=== PATIENT | male | born 1975 | race Caucasian/White ===

== ENCOUNTER 2017-05-30 14:30 | Inpatient (IN) | payer SELFPAY ==
[~2017-05-30] VITALS: Ht 167.6 cm; Wt 77.1 kg
[2017-05-30] MEDS ORDERED: ONDANSETRON HCL 4MG/2ML VIAL IV STA (16:32)
[2017-05-30] MEDS ORDERED: MORPHINE SULFATE 4 MG/ML CPJ (NOT FOR IM USE) IV STA (16:32)
[2017-05-30] MEDS ORDERED: SODIUM CHLORIDE 0.9% 1,000 ML IV ONE (16:32)
[2017-05-30] MEDS ORDERED: PANTOPRAZOLE SODIUM 40 MG/VIAL IV STA (16:32)
[2017-05-30 17:06] LABS: HEMATOCRIT. 40.5 % (42.0-52.0); HEMOGLOBIN. 13.4 g/dL (14.0-18.0); MEAN PLATELET VOLUME 9.8 fl (7.4-10.4); PLATELET 212 x1000/uL (130-400); RED BLOOD CELL COUNT 4.94 mill/uL (4.7-6.1); RED CELL DISTRIBUTION WIDTH 18.9 % (11.6-14.6)
[2017-05-30 17:09] LABS: CHLORIDE 97 mEq/L (98-107)
[2017-05-30 17:11] LABS: INR 1.1; PARTIAL THROMBOPLASTIN TIME 26.1 sec (24.0-34.0); PROTHROMBIN TIME 11.1 sec
[2017-05-30 17:18] LABS: CARBON DIOXIDE 17 mEq/L (21-32); ETHANOL BLOOD < 10 mg/dL
[2017-05-30 17:30] LABS: CLARITY URINE CLOUDY (CLEAR); COLOR URINE ORANGE (YELLOW); GLUCOSE URINE NEGATIVE (NEGATIVE); KETONES URINE 2+ (NEGATIVE); LEUKOCYTE ESTERASE URINE 1+ (NEGATIVE); NITRITE URINE POSITIVE (NEGATIVE); OCCULT BLOOD URINE NEGATIVE (NEGATIVE); PH URINE 5.5 (4.5-8.0); PROTEIN URINE 2+ (NEGATIVE); SPECIFIC GRAVITY URINE 1.032 (1.005-1.030)
[2017-05-30 17:36] LABS: PLATELET ESTIMATE NORMAL
[2017-05-30 17:41] LABS: *AMPHETAMINES SCREEN URINE NEGATIVE (NEGATIVE); *BARBITURATES SCREEN URINE NEGATIVE (NEGATIVE); *BENZODIAZEPINES SCREEN URINE NEGATIVE (NEGATIVE); *COCAINE SCREEN URINE NEGATIVE (NEGATIVE); CANNABINOID URINE SCREEN PRESUMTIVE POSITIVE (NEGATIVE); METHADONE URINE SCREEN NEGATIVE (NEGATIVE); OPIATES URINE SCREEN PRESUMTIVE POSITIVE (NEGATIVE); PHENCYCLIDINE URINE SCREEN NEGATIVE (NEGATIVE)
[2017-05-30] MEDS ORDERED: LORAZEPAM 2MG/ML CPJ IV ONE (21:00)
[2017-05-30] MEDS ORDERED: NA PHOS,M-B/NA PHOS,DI-BA ENEMA 118ML PR PRN (22:30)
[2017-05-30] MEDS ORDERED: ACETAMINOPHEN 325MG TABLET PO PRN (22:30)
[2017-05-30] MEDS ORDERED: HYDROMORPHONE HCL/PF 2MG/ML CPJ IV PRN (22:30)
[2017-05-30] MEDS ORDERED: CLONIDINE 0.1MG TABLET PO PRN (22:30)
[2017-05-30] MEDS ORDERED: MAGNESIUM/ALUMINUM HYDROXIDE/SIMETHICONE 30ML UDC PO PRN (22:30)
[2017-05-30] MEDS ORDERED: ONDANSETRON HCL 4MG/2ML VIAL IV PRN (22:30)
[2017-05-30] MEDS ORDERED: DIPHENHYDRAMINE 50MG/ML VIAL IV PRN (22:30)
[2017-05-30] MEDS ORDERED: DOCUSATE SODIUM 100MG CAPSULE PO PRN (22:30)
[2017-05-30] MEDS ORDERED: GUAIFENESIN 200MG/10ML SUGAR FREE UDC PO PRN (22:30)
[2017-05-30] MEDS ORDERED: LORAZEPAM 2MG/ML CPJ IV PRN (22:30)
[2017-05-30] MEDS ORDERED: IPRATROPIUM/ALBUTEROL 0.5-3(2.5)MG/3ML NEB INH PRN (22:30)
[2017-05-30 22:47] VITALS: BP 123/79
[2017-05-30 23:11] VITALS: BP 123/79
[2017-05-30 23:22] LABS: CARBON DIOXIDE 26 mEq/L (21-32); CHLORIDE 97 mEq/L (98-107)
[2017-05-31] VITALS (7 sets, daily range): BP systolic 98–111; BP diastolic 67–87
[2017-05-31] MEDS: SODIUM CHLORIDE 0.45% 1,000 ML IV SCH ×3 (00:52→20:47)
[2017-05-31 07:34] LABS: HEMATOCRIT. 36.7 % (42.0-52.0); MEAN CORPUSCULAR HEMOGLOBIN 27.2 pg (28.0-32.0); MEAN CORPUSCULAR VOLUME 82.8 fL (80.0-94.0); MEAN PLATELET VOLUME 9.8 fl (7.4-10.4); PLATELET 167 x1000/uL (130-400); RED BLOOD CELL COUNT 4.42 mill/uL (4.7-6.1); RED CELL DISTRIBUTION WIDTH 18.6 % (11.6-14.6)
[2017-05-31] MEDS ORDERED: LORAZEPAM 2MG/ML CPJ IV PRN (07:45)
[2017-05-31 08:21] LABS: CARBON DIOXIDE 26 mEq/L (21-32); CHLORIDE 97 mEq/L (98-107); HDL CHOLESTEROL 118 mg/dL (40-59); LDL CHOLESTEROL 73 mg/dL (5-100)
[2017-05-31 08:23] LABS: TROPONIN I < 0.02 ng/mL (0.00-0.04)
[2017-05-31] MEDS: THIAMINE HCL 100MG TABLET PO SCH (09:25)
[2017-05-31] MEDS ORDERED: POTASSIUM CHLORIDE 20MEQ TABLET SR PO SCH (12:30)
[2017-05-31] MEDS: PANTOPRAZOLE SODIUM 40 MG/VIAL IV SCH (13:21)
[2017-05-31 16:55] LABS: PLATELET ESTIMATE NORMAL
[2017-05-31] MEDS: HYDROCODONE/APAP 7.5/325MG 1 TAB TABLET PO PRN (22:40)
[2017-06-01] VITALS (7 sets, daily range): BP systolic 96–130; BP diastolic 68–88
[2017-06-01 06:45] LABS: CARBON DIOXIDE 34 mEq/L (21-32); CHLORIDE 100 mEq/L (98-107)
[2017-06-01 06:54] LABS: BASOPHILS % 1.2 % (0.0-2.0); HEMOGLOBIN. 11.8 g/dL (14.0-18.0); LYMPHOCYTES % 35.8 % (20.0-50.0); MEAN CORPUSCULAR HEMOGLOBIN 27.5 pg (28.0-32.0); MEAN CORPUSCULAR VOLUME 84.1 fL (80.0-94.0); MEAN PLATELET VOLUME 9.8 fl (7.4-10.4); MONOCYTES % 13.4 % (2.0-8.0); NEUTROPHILS % 47.6 % (40.0-76.0); PLATELET 149 x1000/uL (130-400); RED BLOOD CELL COUNT 4.28 mill/uL (4.7-6.1); RED CELL DISTRIBUTION WIDTH 18.5 % (11.6-14.6)
[2017-06-01] MEDS ORDERED: POTASSIUM CHLORIDE 20MEQ TABLET SR PO NR (07:45)
[2017-06-01] MEDS: HYDROCODONE/APAP 7.5/325MG 1 TAB TABLET PO PRN (09:49)
[2017-06-01] MEDS: PANTOPRAZOLE SODIUM 40 MG/VIAL IV SCH (09:49)
[2017-06-01] MEDS: THIAMINE HCL 100MG TABLET PO SCH (09:49)
[2017-06-01] MEDS: SODIUM CHLORIDE 0.45% 1,000 ML IV SCH (09:51)
[2017-06-02] VITALS: BP 101/63
[2017-06-02] MEDS: SODIUM CHLORIDE 0.45% 1,000 ML IV SCH ×2 (03:19→18:17)
[2017-06-02 04:00] VITALS: BP 106/67
[2017-06-02 08:00] VITALS: BP 107/71
[2017-06-02] MEDS: THIAMINE HCL 100MG TABLET PO SCH (09:14)
[2017-06-02] MEDS: FAMOTIDINE 20MG TABLET PO SCH ×2 (09:14→18:16)
[2017-06-02 12:00] VITALS: BP 112/95
[2017-06-02 16:00] VITALS: BP 105/79
[2017-06-02] MEDS: HYDROCODONE/APAP 7.5/325MG 1 TAB TABLET PO PRN (18:18)
[2017-06-02 20:00] VITALS: BP 115/68
[2017-06-03] VITALS: BP 101/62
[2017-06-03 04:00] VITALS: BP 98/65
[2017-06-03 08:00] VITALS: BP 120/82
[2017-06-03] MEDS: THIAMINE HCL 100MG TABLET PO SCH (08:22)
[2017-06-03] MEDS: FAMOTIDINE 20MG TABLET PO SCH (08:22)
[2017-06-03 12:00] VITALS: BP 116/85
[2017-06-03 14:15] VITALS: BP 116/85
== END 2017-06-03 16:30 | disposition home or self-care (01) | DRG 282 ==
LOC: ER 14:47 → 8WST 21:32 → ENRESERV 21:36 → CANRESERV 21:36 → ENRESERV 21:38
PROVIDERS: ADMIT Internal Medicine; ATTEND Internal Medicine
DX: K85.20 Alcohol induced acute pancreatitis without necrosis or infection (principal); E46 Unspecified protein-calorie malnutrition; F10.239 Alcohol dependence with withdrawal, unspecified; D64.9 Anemia, unspecified; E86.0 Dehydration; F17.210 Nicotine dependence, cigarettes, uncomplicated; I10 Essential (primary) hypertension; F11.90 Opioid use, unspecified, uncomplicated; K21.9 Gastro-esophageal reflux disease without esophagitis; K29.70 Gastritis, unspecified, without bleeding; Z96.659 Presence of unspecified artificial knee joint; Z82.49 Family history of ischemic heart disease and other diseases of the circulatory system; Z68.27 Body mass index [BMI] 27.0-27.9, adult
CPT/HCPCS: 36415; 71010; 80048; 80053; 80061; 80305; 81001; 83690; 84484; 85025; 85610; 85730; 86850; 86900; 96361; 96374; 96375; 97162; 97535; 99285; C9113; G0482; J2060; J2270; J2405; J7030

== ENCOUNTER 2019-06-14 14:22 | Emergency (ER) | payer MEDICAID, OTHER ==
[~2019-06-14] VITALS: Ht 172.7 cm; Wt 70.0 kg
[2019-06-14 15:31] VITALS: BP 120/81
[2019-06-14] MEDS: KETOROLAC 30MG/ML VIAL IM ONE (15:31)
== END 2019-06-14 16:18 | disposition left against medical advice (07) ==
LOC: ER 14:22
DX: S80.11XA Contusion of right lower leg, initial encounter (principal); W51.XXXA Accidental striking against or bumped into by another person, initial encounter; Y93.89 Activity, other specified; Y92.89 Other specified places as the place of occurrence of the external cause; Y99.8 Other external cause status
CPT/HCPCS: 96372; 99283; J1885

== ENCOUNTER 2019-06-14 20:21 | Emergency (ER) | payer OTHER ==
[~2019-06-14] VITALS: Ht 167.6 cm; Wt 65.0 kg
[2019-06-15] MEDS ORDERED: ACETAMINOPHEN 325MG TABLET PO ONE (00:30)
[2019-06-15] MEDS ORDERED: KETOROLAC 60MG/2ML VIAL IM ONE (00:30)
[2019-06-15 01:31] VITALS: BP 129/80
== END 2019-06-15 02:00 | disposition home or self-care (01) ==
LOC: ER 23:37
DX: M79.604 Pain in right leg (principal); G89.28 Other chronic postprocedural pain; Z89.511 Acquired absence of right leg below knee; M79.605 Pain in left leg; F12.90 Cannabis use, unspecified, uncomplicated
CPT/HCPCS: 96372; 99283; J1885

== ENCOUNTER 2019-06-26 10:23 | Inpatient (IN) | payer OTHER ==
[~2019-06-26] VITALS: Ht 167.6 cm; Wt 72.6 kg
[2019-06-26] MEDS ORDERED: SODIUM CHLORIDE 0.9% 1,000 ML IV ONE (11:07)
[2019-06-26] MEDS ORDERED: PIPERACILLIN/TAZ 3.375G PREMIX 50 ML IV ONE (11:15)
[2019-06-26] MEDS ORDERED: VANCOMYCIN 1 G PREMIX 200 ML IV ONE (11:15)
[2019-06-26 12:05] LABS: BASOPHILS % 1.1 % (0.0-2.0); EOSINOPHILS % 3.4 % (0.0-5.0); HEMATOCRIT. 34.1 % (42.0-52.0); HEMOGLOBIN. 11.2 g/dL (14.0-18.0); MEAN CORPUSCULAR HEMOGLOBIN 25.9 pg (28.0-32.0); MEAN PLATELET VOLUME 8.2 fl (7.4-10.4); MONOCYTES % 14.2 % (2.0-8.0); NEUTROPHILS % 61.3 % (40.0-76.0); PLATELET 214 x1000/uL (130-400); RED BLOOD CELL COUNT 4.32 mill/uL (4.7-6.1); RED CELL DISTRIBUTION WIDTH 15.9 % (11.6-14.6)
[2019-06-26 12:06] LABS: CHLORIDE 97 mEq/L (98-107)
[2019-06-26] MEDS ORDERED: SODIUM CHLORIDE 0.9% 1000ML BAG (SEPSIS BOLUS) IV ONE (12:30)
[2019-06-26] MEDS ORDERED: ONDANSETRON HCL 4MG/2ML INJ IV PRN (13:45)
[2019-06-26] MEDS ORDERED: ACETAMINOPHEN 325MG TABLET PO PRN (13:45)
[2019-06-26 13:46] LABS: CLARITY URINE CLEAR (CLEAR); COLOR URINE YELLOW (YELLOW); KETONES URINE NEGATIVE (NEGATIVE); LEUKOCYTE ESTERASE URINE NEGATIVE (NEGATIVE); NITRITE URINE NEGATIVE (NEGATIVE); OCCULT BLOOD URINE 2+ (NEGATIVE); PROTEIN URINE NEGATIVE (NEGATIVE); SPECIFIC GRAVITY URINE 1.005 (1.005-1.030); UROBILINOGEN URINE 0.2 E.U./dL (0.2-1.0)
[2019-06-26] MEDS ORDERED: HYDROCODONE/ACETAMINOPHEN 5/325MG TABLET PO ONE (14:00)
[2019-06-26 14:50] VITALS: BP 125/78
[2019-06-26 16:00] VITALS: BP 125/78
[2019-06-26] MEDS ORDERED: POTASSIUM CHLORIDE 20MEQ TABLET SR PO NR (16:30)
[2019-06-26 16:34] LABS: *AMPHETAMINES SCREEN URINE PRESUMTIVE POSITIVE (NEGATIVE); *BARBITURATES SCREEN URINE NEGATIVE (NEGATIVE)
[2019-06-26 16:35] LABS: *BENZODIAZEPINES SCREEN URINE NEGATIVE (NEGATIVE); *COCAINE SCREEN URINE NEGATIVE (NEGATIVE); CANNABINOID URINE SCREEN NEGATIVE (NEGATIVE); OPIATES URINE SCREEN NEGATIVE (NEGATIVE); PHENCYCLIDINE URINE SCREEN NEGATIVE (NEGATIVE)
[2019-06-26 16:43] LABS: METHADONE URINE SCREEN NEGATIVE (NEGATIVE)
[2019-06-26] MEDS: MORPHINE SULFATE 2 MG/ML CPJ (NOT FOR IM USE) IV PRN (17:11)
[2019-06-26] MEDS ORDERED: LORAZEPAM 2MG/ML CPJ IV PRN (18:45)
[2019-06-26] MEDS: PIPERACILLIN/TAZOBACTAM 3.375 G in DEXT 5% WATER 100 ML IV SCH (18:49)
[2019-06-26 20:00] VITALS: BP 115/70
[2019-06-26] MEDS ORDERED: ENOXAPARIN 40MG/0.4ML SYR SUBCUT SCH (21:00)
[2019-06-26] MEDS: VANCOMYCIN 1250MG in DEXTROSE 5% WATER 250ML IV SCH (22:43)
[2019-06-26] MEDS: CHLORDIAZEPOXIDE 25MG CAPSULE PO SCH (22:43)
[2019-06-27] VITALS: BP 100/65
[2019-06-27] MEDS: PIPERACILLIN/TAZOBACTAM 3.375 G in DEXT 5% WATER 100 ML IV SCH ×2 (01:04→05:55)
[2019-06-27] MEDS: VANCOMYCIN 1250MG in DEXTROSE 5% WATER 250ML IV SCH (03:02)
[2019-06-27] MEDS: MORPHINE SULFATE 2 MG/ML CPJ (NOT FOR IM USE) IV PRN (03:12)
[2019-06-27 04:00] VITALS: BP 132/83
[2019-06-27] MEDS: CHLORDIAZEPOXIDE 25MG CAPSULE PO SCH ×2 (05:58→16:33)
[2019-06-27 07:06] LABS: BASOPHILS % 0.6 % (0.0-2.0); HEMATOCRIT. 30.3 % (42.0-52.0); LYMPHOCYTES % 12.8 % (20.0-50.0); MEAN CORPUSCULAR HEMOGLOBIN 25.9 pg (28.0-32.0); MEAN CORPUSCULAR VOLUME 78.6 fL (80.0-94.0); MEAN PLATELET VOLUME 8.8 fl (7.4-10.4); MONOCYTES % 12.4 % (2.0-8.0); NEUTROPHILS % 72.2 % (40.0-76.0); PLATELET 199 x1000/uL (130-400); RED BLOOD CELL COUNT 3.86 mill/uL (4.7-6.1)
[2019-06-27 07:08] LABS: CHLORIDE 102 mEq/L (98-107)
[2019-06-27] MEDS ORDERED: LIDOCAINE HCL 4% CREAM 76GM TUBE TP PRN (07:30)
[2019-06-27 08:00] VITALS: BP 109/68
[2019-06-27] MEDS ORDERED: MULTIVITAMINS,THER W-MINERALS TABLET PO SCH (09:00)
[2019-06-27] MEDS ORDERED: FOLIC ACID 1MG TABLET PO SCH (09:00)
[2019-06-27] MEDS ORDERED: THIAMINE HCL 100MG TABLET PO SCH (09:00)
[2019-06-27] MEDS ORDERED: POTASSIUM CHLORIDE 20MEQ TABLET SR PO NR (10:30)
[2019-06-27] MEDS ORDERED: HYDROCODONE/ACETAMINOPHEN 10/325MG TABLET PO PRN (11:00)
[2019-06-27] MEDS ORDERED: VANCOMYCIN 1 G PREMIX 200 ML IV SCH (11:00)
[2019-06-27 12:00] VITALS: BP 109/68
[2019-06-27 16:00] VITALS: BP 103/61
[2019-06-27] MEDS ORDERED: PIPERACILLIN/TAZOBACTAM 3.375 G in DEXT 5% WATER 100 ML IV SCH (18:00)
[2019-06-27 21:32] VITALS: BP 95/65
== END 2019-06-27 21:06 | disposition short-term general hospital (02) | DRG 721 ==
LOC: ER 10:23 → 6EST 12:39 → EDBEDREQ 12:41 → ENRESERV 14:23
PROVIDERS: ADMIT Internal Medicine; ATTEND Internal Medicine
PROC: 0JBR0ZZ Excision of Left Foot Subcutaneous Tissue and Fascia, Open Approach (ICD-10-PCS; principal; 2019-06-27)
DX: T85.79XA Infection and inflammatory reaction due to other internal prosthetic devices, implants and grafts, initial encounter (principal); A41.9 Sepsis, unspecified organism; E87.8 Other disorders of electrolyte and fluid balance, not elsewhere classified; E87.1 Hypo-osmolality and hyponatremia; Z89.611 Acquired absence of right leg above knee; D64.9 Anemia, unspecified; S82.839A Other fracture of upper and lower end of unspecified fibula, initial encounter for closed fracture; G62.1 Alcoholic polyneuropathy; S91.012A Laceration without foreign body, left ankle, initial encounter; E87.6 Hypokalemia; F10.10 Alcohol abuse, uncomplicated; F12.90 Cannabis use, unspecified, uncomplicated; Z59.0 Homelessness; Z63.8 Other specified problems related to primary support group; Z99.3 Dependence on wheelchair; Z71.41 Alcohol abuse counseling and surveillance of alcoholic; X58.XXXA Exposure to other specified factors, initial encounter; Y93.89 Activity, other specified; Y92.89 Other specified places as the place of occurrence of the external cause; Y99.8 Other external cause status; F15.10 Other stimulant abuse, uncomplicated; Y83.2 Surgical operation with anastomosis, bypass or graft as the cause of abnormal reaction of the patient, or of later complication, without mention of misadventure at the time of the procedure; Y92.9 Unspecified place or not applicable
CPT/HCPCS: 36415; 71045; 73590; 80048; 80305; 81003; 83605; 84145; 84484; 86850; 86900; 87070; 87075; 93005; 96365; 96368; 99291; J1650; J2060; J2270; J2405; J2543; J3370; J7030; J7060

== ENCOUNTER 2019-07-23 19:00 | Emergency (ER) | payer OTHER ==
[~2019-07-23] VITALS: Ht 162.6 cm; Wt 58.0 kg
[2019-07-23] MEDS ORDERED: KETOROLAC 60MG/2ML VIAL IM ONE (19:45)
[2019-07-23] MEDS ORDERED: SULFAMETHOXAZOLE/TRIMETHOPRIM 800/160MG TABLET PO ONE (19:45)
[2019-07-23] MEDS ORDERED: CEPHALEXIN 250MG CAPSULE PO ONE (19:45)
[2019-07-23] MEDS ORDERED: ACETAMINOPHEN 325MG TABLET PO ONE (19:45)
[2019-07-24] MEDS ORDERED: LORAZEPAM 1MG TABLET PO ONE (05:30)
[2019-07-24] MEDS ORDERED: KETOROLAC 15MG/ML VIAL IM ONE (05:30)
[2019-07-24] MEDS ORDERED: ACETAMINOPHEN 325MG TABLET PO ONE ×2 (11:15→17:30)
[2019-07-24] MEDS ORDERED: KETOROLAC 30MG/ML VIAL IM STA (19:01)
[2019-07-25 07:10] VITALS: BP 128/73
== END 2019-07-25 07:48 | disposition home or self-care (01) ==
LOC: ER 19:00
DX: L03.116 Cellulitis of left lower limb (principal); M79.605 Pain in left leg; F12.10 Cannabis abuse, uncomplicated; F10.10 Alcohol abuse, uncomplicated; Z89.611 Acquired absence of right leg above knee; Z59.0 Homelessness; Y90.9 Presence of alcohol in blood, level not specified
CPT/HCPCS: 96372; 99284; J1885; Z7610

== ENCOUNTER 2019-07-25 21:10 | Emergency (ER) | payer OTHER ==
[~2019-07-25] VITALS: Ht 165.1 cm; Wt 59.0 kg
[2019-07-26] MEDS ORDERED: SODIUM CHLORIDE 0.9% 1,000 ML IV ONE (01:18)
[2019-07-26] MEDS ORDERED: ONDANSETRON HCL 4MG/2ML INJ IV STA (01:18)
[2019-07-26] MEDS ORDERED: KETOROLAC 30MG/ML VIAL IV STA (01:18)
[2019-07-26] MEDS ORDERED: FAMOTIDINE 20MG/2ML VIAL IV ONE (01:30)
[2019-07-26 02:19] LABS: BASOPHILS % 1.2 % (0.0-2.0); EOSINOPHILS % 9.2 % (0.0-5.0); HEMATOCRIT. 35.5 % (42.0-52.0); HEMOGLOBIN. 11.5 g/dL (14.0-18.0); LYMPHOCYTES % 23.2 % (20.0-50.0); MEAN CORPUSCULAR HEMOGLOBIN 25.5 pg (28.0-32.0); MEAN CORPUSCULAR VOLUME 78.8 fL (80.0-94.0); MONOCYTES % 7.4 % (2.0-8.0); PLATELET 316 x1000/uL (130-400); RED BLOOD CELL COUNT 4.51 mill/uL (4.7-6.1); RED CELL DISTRIBUTION WIDTH 17.7 % (11.6-14.6)
[2019-07-26 02:43] LABS: CHLORIDE 107 mEq/L (98-107)
[2019-07-26 02:50] LABS: ETHANOL BLOOD 227 mg/dL
[2019-07-26 04:46] LABS: CLARITY URINE CLEAR (CLEAR); COLOR URINE YELLOW (YELLOW); KETONES URINE NEGATIVE (NEGATIVE); LEUKOCYTE ESTERASE URINE 3+ (NEGATIVE); NITRITE URINE NEGATIVE (NEGATIVE); OCCULT BLOOD URINE 1+ (NEGATIVE); PROTEIN URINE NEGATIVE (NEGATIVE); UROBILINOGEN URINE 0.2 E.U./dL (0.2-1.0)
[2019-07-26 05:14] LABS: *BARBITURATES SCREEN URINE NEGATIVE (NEGATIVE); *BENZODIAZEPINES SCREEN URINE NEGATIVE (NEGATIVE); METHADONE URINE SCREEN NEGATIVE (NEGATIVE); OPIATES URINE SCREEN NEGATIVE (NEGATIVE)
[2019-07-26 05:15] LABS: CANNABINOID URINE SCREEN NEGATIVE (NEGATIVE); PHENCYCLIDINE URINE SCREEN NEGATIVE (NEGATIVE)
[2019-07-26 05:22] LABS: *AMPHETAMINES SCREEN URINE NEGATIVE (NEGATIVE)
[2019-07-26 05:23] LABS: *COCAINE SCREEN URINE NEGATIVE (NEGATIVE)
[2019-07-26 06:30] VITALS: BP 109/61
== END 2019-07-26 06:30 | disposition home or self-care (01) ==
LOC: ER 23:57
DX: R10.13 Epigastric pain (principal); F10.129 Alcohol abuse with intoxication, unspecified; Y90.7 Blood alcohol level of 200-239 mg/100 ml; F12.10 Cannabis abuse, uncomplicated
CPT/HCPCS: 36415; 80053; 80305; 80320; 81003; 83690; 85025; 93005; 96361; 96374; 96375; 99284; J1885; J2405; J3490; J7030; Z7610; G0480

== ENCOUNTER 2019-09-17 19:49 | Emergency (ER) | payer OTHER ==
[~2019-09-17] VITALS: Ht 167.6 cm; Wt 73.0 kg
[2019-09-17] MEDS ORDERED: IBUPROFEN 600MG TABLET PO ONE (23:15)
[2019-09-17 23:19] LABS: EOSINOPHILS % 5.5 % (0.0-5.0); HEMATOCRIT. 38.4 % (42.0-52.0); HEMOGLOBIN. 12.1 g/dL (14.0-18.0); LYMPHOCYTES % 19.3 % (20.0-50.0); MEAN CORPUSCULAR HEMOGLOBIN 26.4 pg (28.0-32.0); MEAN CORPUSCULAR VOLUME 83.6 fL (80.0-94.0); MONOCYTES % 10.7 % (2.0-8.0); NEUTROPHILS % 63.5 % (40.0-76.0); PLATELET 338 x1000/uL (130-400); RED BLOOD CELL COUNT 4.59 mill/uL (4.7-6.1); RED CELL DISTRIBUTION WIDTH 19.3 % (11.6-14.6)
[2019-09-17 23:25] LABS: CHLORIDE 109 mEq/L (98-107)
[2019-09-18 05:50] VITALS: BP 102/60
== END 2019-09-18 06:12 | disposition home or self-care (01) ==
LOC: ER 19:49
DX: G89.29 Other chronic pain (principal); M25.572 Pain in left ankle and joints of left foot; M79.662 Pain in left lower leg; D64.9 Anemia, unspecified; R03.0 Elevated blood-pressure reading, without diagnosis of hypertension; F12.90 Cannabis use, unspecified, uncomplicated; Z89.511 Acquired absence of right leg below knee
CPT/HCPCS: 36415; 73590; 73600; 80048; 99284

== ENCOUNTER 2019-12-18 15:49 | Emergency (ER) | payer OTHER ==
[~2019-12-18] VITALS: Ht 165.1 cm; Wt 68.0 kg
[2019-12-18] MEDS ORDERED: FAMOTIDINE 20MG/2ML VIAL IV STA (16:42)
[2019-12-18] MEDS ORDERED: VISCOUS LIDOCAINE 2% 15 ML UDC PO STA (16:42)
[2019-12-18] MEDS ORDERED: ONDANSETRON HCL 4MG/2ML INJ IV STA (16:42)
[2019-12-18] MEDS ORDERED: SODIUM CHLORIDE 0.9% 1,000 ML IV ONE (16:42)
[2019-12-18] MEDS ORDERED: MAGNESIUM/ALUMINUM HYDROXIDE/SIMETHICONE 30ML UDC PO STA (16:42)
[2019-12-18 18:11] LABS: BASOPHILS % 1.5 % (0.0-2.0); EOSINOPHILS % 3.7 % (0.0-5.0); HEMATOCRIT. 36.5 % (42.0-52.0); HEMOGLOBIN. 11.3 g/dL (14.0-18.0); LYMPHOCYTES % 24.2 % (20.0-50.0); MEAN CORPUSCULAR HEMOGLOBIN 24.5 pg (28.0-32.0); MEAN CORPUSCULAR VOLUME 79.3 fL (80.0-94.0); MEAN PLATELET VOLUME 7.8 fl (7.4-10.4); MONOCYTES % 8.3 % (2.0-8.0); NEUTROPHILS % 62.3 % (40.0-76.0); PLATELET 296 x1000/uL (130-400); RED CELL DISTRIBUTION WIDTH 18.6 % (11.6-14.6)
[2019-12-18 18:19] LABS: CHLORIDE 106 mEq/L (98-107)
[2019-12-18 18:39] LABS: ETHANOL BLOOD 304 mg/dL
[2019-12-18 19:52] LABS: CLARITY URINE CLEAR (CLEAR); COLOR URINE YELLOW (YELLOW); KETONES URINE NEGATIVE (NEGATIVE); LEUKOCYTE ESTERASE URINE NEGATIVE (NEGATIVE); NITRITE URINE NEGATIVE (NEGATIVE); OCCULT BLOOD URINE TRACE (NEGATIVE); PROTEIN URINE NEGATIVE (NEGATIVE); SPECIFIC GRAVITY URINE 1.007 (1.005-1.030); UROBILINOGEN URINE 0.2 E.U./dL (0.2-1.0)
[2019-12-18 20:03] LABS: *AMPHETAMINES SCREEN URINE NEGATIVE (NEGATIVE); *BARBITURATES SCREEN URINE NEGATIVE (NEGATIVE); *BENZODIAZEPINES SCREEN URINE PRESUMTIVE POSITIVE (NEGATIVE); *COCAINE SCREEN URINE NEGATIVE (NEGATIVE); METHADONE URINE SCREEN NEGATIVE (NEGATIVE)
[2019-12-18 20:04] LABS: CANNABINOID URINE SCREEN NEGATIVE (NEGATIVE); OPIATES URINE SCREEN NEGATIVE (NEGATIVE); PHENCYCLIDINE URINE SCREEN NEGATIVE (NEGATIVE)
[2019-12-19] MEDS ORDERED: ONDANSETRON 4MG ODT PO ONE (07:30)
[2019-12-19 10:20] VITALS: BP 112/68
== END 2019-12-19 09:44 | disposition home or self-care (01) ==
LOC: ER 15:49
DX: L03.116 Cellulitis of left lower limb (principal); F10.229 Alcohol dependence with intoxication, unspecified; Y90.8 Blood alcohol level of 240 mg/100 ml or more; F13.10 Sedative, hypnotic or anxiolytic abuse, uncomplicated; K70.9 Alcoholic liver disease, unspecified; D50.9 Iron deficiency anemia, unspecified; Z89.511 Acquired absence of right leg below knee
CPT/HCPCS: 36415; 71045; 73610; 80053; 80305; 80320; 81003; 83690; 85025; 85610; 93971; 96374; 96375; 99284; J2405; J3490; J7030; G0480

== ENCOUNTER 2020-01-19 21:06 | Emergency (ER) | payer OTHER ==
[~2020-01-19] VITALS: Ht 165.1 cm; Wt 64.0 kg
[2020-01-20 07:33] VITALS: BP 98/70
== END 2020-01-20 10:36 | disposition left against medical advice (07) ==
LOC: ER 21:06
DX: F10.120 Alcohol abuse with intoxication, uncomplicated (principal); Z53.21 Procedure and treatment not carried out due to patient leaving prior to being seen by health care provider; Y90.9 Presence of alcohol in blood, level not specified

== ENCOUNTER 2021-02-06 22:24 | Emergency (ER) | payer OTHER ==
[~2021-02-06] VITALS: Ht 175.3 cm; Wt 71.0 kg
[2021-02-06] MEDS ORDERED: SODIUM CHLORIDE 0.9% 1000ML BAG (SEPSIS BOLUS) IV ONE (23:30)
[2021-02-07 01:25] LABS: BASOPHILS % 1.3 % (0.0-2.0); EOSINOPHILS % 7.9 % (0.0-5.0); HEMATOCRIT. 29.8 % (42.0-52.0); HEMOGLOBIN. 8.9 g/dL (14.0-18.0); LYMPHOCYTES % 36.7 % (20.0-50.0); MEAN CORPUSCULAR HEMOGLOBIN 21.9 pg (28.0-32.0); MEAN CORPUSCULAR VOLUME 72.8 fL (80.0-94.0); MEAN PLATELET VOLUME 8.4 fl (7.4-10.4); NEUTROPHILS % 41.1 % (40.0-76.0); PLATELET 318 x1000/uL (130-400); RED BLOOD CELL COUNT 4.09 mill/uL (4.7-6.1); RED CELL DISTRIBUTION WIDTH 18.5 % (11.6-14.6)
[2021-02-07 01:28] LABS: CHLORIDE 107 mEq/L (98-107)
[2021-02-07 01:32] LABS: ETHANOL BLOOD 134 mg/dL
[2021-02-07 02:06] LABS: PROTHROMBIN TIME 10.8 sec (9.6-11.0)
[2021-02-07] MEDS ORDERED: DEXT 5%/0.9% NACL 1,000 ML IV ONE (03:30)
[2021-02-07 04:57] LABS: CLARITY URINE CLEAR (CLEAR); COLOR URINE YELLOW (YELLOW); KETONES URINE TRACE (NEGATIVE); LEUKOCYTE ESTERASE URINE NEGATIVE (NEGATIVE); NITRITE URINE NEGATIVE (NEGATIVE); OCCULT BLOOD URINE 1+ (NEGATIVE); PH URINE 5.5 (4.5-8.0); PROTEIN URINE NEGATIVE (NEGATIVE); UROBILINOGEN URINE 0.2 E.U./dL (0.2-1.0)
[2021-02-07 05:21] LABS: *AMPHETAMINES SCREEN URINE NEGATIVE (NEGATIVE); *BARBITURATES SCREEN URINE NEGATIVE (NEGATIVE); *BENZODIAZEPINES SCREEN URINE PRESUMTIVE POSITIVE (NEGATIVE); *COCAINE SCREEN URINE NEGATIVE (NEGATIVE); CANNABINOID URINE SCREEN PRESUMTIVE POSITIVE (NEGATIVE); METHADONE URINE SCREEN NEGATIVE (NEGATIVE); OPIATES URINE SCREEN PRESUMTIVE POSITIVE (NEGATIVE); PHENCYCLIDINE URINE SCREEN NEGATIVE (NEGATIVE)
[2021-02-07 10:30] VITALS: BP 123/69
== END 2021-02-07 11:00 | disposition home or self-care (01) ==
LOC: ER 22:24 → CANBEDREQ 02-07 05:26 → ER 02-07 11:00
DX: R60.0 Localized edema (principal); E87.2 Acidosis; F10.229 Alcohol dependence with intoxication, unspecified; Y90.0 Blood alcohol level of less than 20 mg/100 ml; E11.9 Type 2 diabetes mellitus without complications; Z98.890 Other specified postprocedural states
CPT/HCPCS: 36415; 71045; 80053; 80305; 80320; 81003; 82140; 82962; 83605; 83690; 84145; 84484; 85025; 85610; 87040; 87086; 93971; 96360; 96361; 99285; J7030; J7042; G0480

== ENCOUNTER 2021-06-23 11:23 | Emergency (ER) | payer OTHER ==
[~2021-06-23] VITALS: Ht 170.2 cm; Wt 75.0 kg
[2021-06-23 11:27] VITALS: BP 126/81
[2021-06-23] MEDS ORDERED: MAGNESIUM/ALUMINUM HYDROXIDE/SIMETHICONE 30ML UDC PO ONE (11:45)
[2021-06-23] MEDS ORDERED: FAMOTIDINE 20MG TABLET PO ONE (11:45)
[2021-06-23] MEDS ORDERED: ACETAMINOPHEN 325MG TABLET PO ONE (11:45)
[2021-06-23] MEDS ORDERED: VISCOUS LIDOCAINE 2% 15 ML UDC MM PRN (11:45)
[2021-06-23 12:15] LABS: BASOPHILS % 0.7 % (0.0-2.0); HEMATOCRIT. 37.6 % (42.0-52.0); HEMOGLOBIN. 12.1 g/dL (14.0-18.0); MEAN CORPUSCULAR HEMOGLOBIN 25.9 pg (28.0-32.0); MEAN CORPUSCULAR VOLUME 80.7 fL (80.0-94.0); MEAN PLATELET VOLUME 8.3 fl (7.4-10.4); MONOCYTES % 9.5 % (2.0-8.0); NEUTROPHILS % 76.8 % (40.0-76.0); PLATELET 307 x1000/uL (130-400); RED BLOOD CELL COUNT 4.66 mill/uL (4.7-6.1); RED CELL DISTRIBUTION WIDTH 18.4 % (11.6-14.6)
[2021-06-23 12:20] LABS: CHLORIDE 104 mEq/L (98-107)
[2021-06-23 14:04] LABS: *BARBITURATES SCREEN URINE NEGATIVE (NEGATIVE); METHADONE URINE SCREEN NEGATIVE (NEGATIVE); OPIATES URINE SCREEN NEGATIVE (NEGATIVE); PHENCYCLIDINE URINE SCREEN NEGATIVE (NEGATIVE)
[2021-06-23 14:05] LABS: *AMPHETAMINES SCREEN URINE NEGATIVE (NEGATIVE); *COCAINE SCREEN URINE NEGATIVE (NEGATIVE)
[2021-06-23 14:07] LABS: *BENZODIAZEPINES SCREEN URINE PRESUMTIVE POSITIVE (NEGATIVE); CANNABINOID URINE SCREEN PRESUMTIVE POSITIVE (NEGATIVE)
[2021-06-23] MEDS ORDERED: SULF1TAB48 MT (16:02)
[2021-06-23] MEDS ORDERED: CEPH500C2 MT (16:02)
== END 2021-06-23 17:59 | disposition home or self-care (01) ==
LOC: ER 11:37
DX: E11.622 Type 2 diabetes mellitus with other skin ulcer (principal); L03.116 Cellulitis of left lower limb; K85.90 Acute pancreatitis without necrosis or infection, unspecified; Z89.611 Acquired absence of right leg above knee; F10.20 Alcohol dependence, uncomplicated; Y90.9 Presence of alcohol in blood, level not specified
CPT/HCPCS: 36415; 76705; 80053; 80305; 80320; 85025; 99284; G0480